=== PATIENT | male | born 1975 | race Caucasian/White ===

== ENCOUNTER 2017-08-26 23:49 | Emergency (ER) | payer BC ==
[2017-08-27] VITALS: BP 133/95
[2017-08-27] MEDS ORDERED: Sodium Chloride 0.9% 1,000 ML IV ONE (00:05)
[2017-08-27] MEDS ORDERED: Ketorolac 30 MG/ML SDV IVPUSH ONE (00:05)
[2017-08-27] MEDS ORDERED: Ondansetron 4 MG/2 ML SDV IVPUSH ONE (00:05)
[2017-08-27] MEDS ORDERED: diphenhydrAMINE 50 MG/ML SDV IVPUSH ONE (00:07)
[2017-08-27] MEDS ORDERED: Metoclopramide 10 MG/2 ML SDV IVPUSH ONE (00:07)
--- NOTE | 2017-08-27 00:15 | EDM.PDOC ---
ED HPI GENERAL MEDICAL PROBLEM - General Chief Complaint: Headache Stated Complaint: HEADACHE Time Seen by Provider: 08/26/17 23:58 Source of Information: Reports: Patient History Limitations: Reports: No Limitations - History of Present Illness INITIAL COMMENTS - FREE TEXT/NARRATIVE: The patient is a 41-year-old male, previously healthy, who comes in with severe headache. He states the headache started suddenly about 30 minutes ago while at rest. He had sudden onset severe pain in the right half of his head. There was no provoking factor. Pain is sharp, severe, located in the right head area and does move down towards his neck. No history of similar symptoms previously. No vision change. No nausea or vomiting. The headache is worse with movement. It is also worse with lying down, better while sitting up. No weakness or confusion. Was feeling fine earlier today. No recent trauma. Has had some mild nasal congestion but no additional recent illness. Right Headache Pain Score (Numeric/FACES): 10 - Related Data Allergies Allergy/AdvReac Type Severity Reaction Status Date / Time Penicillins Allergy Cannot Verified 08/27/17 00:01 Remember Home Meds: Home Meds . [No Known Home Meds] 08/27/17 [History] Past Medical History HEENT History: Reports: Impaired Vision Cardiovascular History: Reports: None Respiratory History: Reports: None Gastrointestinal History: Reports: None Genitourinary History: Reports: None [employer] History: Reports: None Musculoskeletal History: Reports: Other (See Below) Other Musculoskeletal History: ac shoulder surgery Neurological History: Reports: None Psychiatric History: Reports: None Endocrine/Metabolic History: Reports: None Hematologic History: Reports: None Immunologic History: Reports: None Oncologic (Cancer) History: Reports: None Dermatologic History: Reports: None - Past Surgical History Head Surgeries/Procedures: Reports: None Social & Family History - Family History Family Medical History: Noncontributory - Tobacco Use Smoking Status *Q: Current Some Day Smoker Years of Tobacco use: 10 Packs/Tins Daily: 0.1 - Caffeine Use Caffeine Use: Reports: None - Recreational Drug Use Recreational Drug Use: No Drug Use in Last 12 Months: No ED ROS GENERAL - Review of Systems Review Of Systems: See Below Constitutional: Denies: Fever HEENT: Reports: Rhinitis Respiratory: Reports: No Symptoms Cardiovascular: Reports: No Symptoms Endocrine: Reports: No Symptoms GI/Abdominal: Denies: Nausea, Vomiting : Reports: No Symptoms Musculoskeletal: Reports: No Symptoms Skin: Reports: No Symptoms Neurological: Reports: Headache Psychiatric: Reports: No Symptoms Hematologic/Lymphatic: Reports: No Symptoms - Physical Exam Exam: See Below Exam Limited By: No Limitations General Appearance: Alert, WD/WN, Moderate Distress Eye Exam: Bilateral Eye: EOMI, PERRL Ears: Normal External Exam Nose: Normal Inspection Throat/Mouth: Normal Inspection, Normal Oropharynx, Normal Voice, No Airway Compromise Head Exam: Atraumatic, Normocephalic Neck: Normal Inspection, Supple, Non-Tender, Full Range of Motion Respiratory/Chest: No Respiratory Distress, Lungs Clear, Normal Breath Sounds Cardiovascular: Regular Rate, Rhythm, No Murmur GI/Abdominal: Soft, No Distention. No: Rebound Neuro Exam (Abbreviated): Alert, Oriented, CN II-XII Intact, Normal Cognition, No Motor/Sensory Deficits Extremities: Normal Inspection Psychiatric: Normal Affect, Normal Mood Skin Exam: Warm, Dry, Intact, Normal Color, No Rash Course - Vital Signs Last Recorded V/S: Last Vital Signs Temp 36.7 C 08/26/17 23:57 Pulse 94 08/26/17 23:57 Resp 16 08/26/17 23:57 BP 133/95 H 08/26/17 23:57 Pulse Ox 100 08/26/17 23:57 - Orders/Labs/Meds Meds: Medications Discontinued Medications Generic Name Dose Route Start Last Admin Trade Name Louisq PRN Reason Stop Dose Admin Diphenhydramine HCl 25 mg 08/27/17 00:07 08/27/17 00:16 Benadryl IVPUSH 08/27/17 00:08 25 mg ONETIME ONE Administration Sodium Chloride 1,000 mls @ 1,000 mls/hr 08/27/17 00:05 08/27/17 00:11 Normal Saline IV 08/27/17 01:04 1,000 mls/hr ONETIME ONE Administration Ketorolac Tromethamine 30 mg 08/27/17 00:05 08/27/17 00:13 Toradol IVPUSH 08/27/17 00:06 30 mg ONETIME ONE Administration Metoclopramide HCl 10 mg 08/27/17 00:07 08/27/17 00:18 Reglan IVPUSH 08/27/17 00:08 10 mg ONETIME ONE Administration Ondansetron HCl 4 mg 08/27/17 00:05 08/27/17 00:15 Zofran IVPUSH 08/27/17 00:06 4 mg ONETIME ONE Administration - Re-Assessments/Exams Free Text/Narrative Re-Assessment/Exam: 08/27/17 00:41 Given sudden onset severe headache in patient with no history of headaches, CT head ordered. Meanwhile, he does feel significantly better after toradol, benadryl, reglan, and IVF. 08/27/17 01:01 CT head negative for acute abnormality. Feeling much better, headache nearly resolved. Advised patient to f/u with his PCP this week for further care. Discussed return precautions. Departure - Departure Time of Disposition: 02:00 Disposition: Home, Self-Care 01 Clinical Impression: Headache Qualifiers: Headache type: unspecified Headache chronicity pattern: acute headache Intractability: not intractable Qualified Code(s): R51 - Headache - Discharge Information Instructions: Migraine Headache Referrals: Himanshu Shelton Jr, MD [Primary Care Provider] - Forms: ED Department Discharge Additional Instructions: 1. If headache returns, take ibuprofen and excedrin as needed 2. Return to the Emergency Department if headache is severe or if you have new concerning symptoms 3. Otherwise follow up with your primary care provider as soon as possible
--- NOTE | 2017-08-27 07:18 | CT ---
Head CT Technique: Multiple axial sections through the brain were obtained. Intravenous contrast was not utilized. Comparison: No prior head CT exam. Findings: Ventricles along with basal cisterns and sulci over the convexities are within normal limits for the patient's age. No abnormal parenchymal densities are seen. No evidence of intracranial hemorrhage. No midline shift or mass effect is seen. Bone window settings were reviewed which show mild to moderate mucosal thickening within the ethmoid and frontal sinuses. Minimal mucosal thickening is seen within the sphenoid sinus. No acute calvarial abnormality is seen. Impression: 1. Sinus findings most likely representing chronic sinusitis. 2. Nothing acute is identified on noncontrast head CT study. Diagnostic code #2 I agree with preliminary report issued by [facility] ([facility] preliminary report dictated on 08/27/17, 02:05 AM Central Time)
== END 2017-08-27 01:10 | disposition home or self-care (01) ==
LOC: JD.ED 23:49
DX: R51 Headache (principal); F17.210 Nicotine dependence, cigarettes, uncomplicated; Z88.0 Allergy status to penicillin
CPT/HCPCS: 70450; 96374; 96375; 99284; J1200; J1885; J2405; J2765; J7040; 99282